=== PATIENT | female | born 1945 | race Hispanic/Latino ===

== ENCOUNTER 2017-03-20 07:30 | Day surgery (SDC) | payer MEDICARE, MEDICAID ==
[2016-12-23 09:57] VITALS: BMI 27.3
[2017-03-20] MEDS ORDERED: Iohexol 240 (50 ml) ONE (07:59)
[2017-03-20] MEDS ORDERED: Lidocaine 1% Inj (20ml) ONE (09:38)
[2017-03-20] MEDS ORDERED: Propofol 10 mg/ml Inj (20 ML) ONE ×2 (09:38→10:14)
--- NOTE | 2017-03-20 15:07 | RAD ---
PROCEDURE: Fluoroscopy up to 1 hour HISTORY: PYLORIC DILATATION COMPARISON: TECHNIQUE: Fluoroscopy was provided in the endoscopy suite. A single image was submitted FINDINGS: Image shows an endoscope overlying the lower abdomen with the tip directed upward IMPRESSION: As above
[2017-03-20 15:18] VITALS: BP 126/75; PULSE 67; RESP 17; TEMP 97.7; O2SAT 98
== END 2017-03-20 13:45 | disposition home or self-care (01) ==
LOC: ENDO 07:30
PROVIDERS: ATTEND Internal Medicine Gastroenterology
DX: K31.1 Adult hypertrophic pyloric stenosis (principal); K22.70 Barrett's esophagus without dysplasia; K25.9 Gastric ulcer, unspecified as acute or chronic, without hemorrhage or perforation
CPT/HCPCS: 43239; 43245; 76000; 88305; 88342; J2704; Q9966

== ENCOUNTER 2017-06-23 09:36 | Day surgery (SDC) | payer MEDICARE, MEDICAID ==
[2016-12-23 09:57] VITALS: BMI 27.3
[2017-06-23] MEDS ORDERED: Iohexol 240 (50 ml) ONE (10:24)
[2017-06-23] MEDS ORDERED: Propofol 10 mg/ml Inj (20 ML) ONE (11:00)
[2017-06-23] MEDS ORDERED: ePHEDrine 50 mg/ml Inj ONE (11:19)
[2017-06-23] MEDS ORDERED: Sodium Chloride 0.9% 1,000 ML IV SCH (12:30)
[2017-06-23 13:13] VITALS: RESP 16; TEMP 97; O2SAT 94
[2017-06-23 14:31] VITALS: BP 110/65; PULSE 90
--- NOTE | 2017-06-23 15:00 | RAD ---
PROCEDURE: Fluoroscopy up to 1 hour HISTORY: PYLORIC DILITATION COMPARISON: TECHNIQUE: Fluoroscopy was provided in the endoscopy suite. Four images were submitted FINDINGS: The study shows the tip of the endoscope and an inflated balloon catheter IMPRESSION: As above
== END 2017-06-23 14:20 | disposition home or self-care (01) ==
LOC: ENDO 09:36
PROVIDERS: ATTEND Internal Medicine Gastroenterology
DX: K31.1 Adult hypertrophic pyloric stenosis (principal); K25.9 Gastric ulcer, unspecified as acute or chronic, without hemorrhage or perforation
CPT/HCPCS: 43245; 76000; C1726; J2704; J7040; Q9966

== ENCOUNTER 2017-11-24 10:57 | Day surgery (SDC) | payer MEDICARE, OTHER ==
[2017-11-23 13:18] VITALS: BMI 26.9
[2017-11-24] MEDS ORDERED: Iohexol 240 (50 ml) ONE (12:16)
[2017-11-24] MEDS ORDERED: Propofol 10 mg/ml Inj (20 ML) ONE (12:29)
[2017-11-24] MEDS ORDERED: Phenylephrine 10 mg/ml Inj ONE (12:37)
[2017-11-24] MEDS ORDERED: Lactated Ringer's 1,000 ML IV SCH (13:15)
[2017-11-24 14:34] VITALS: BP 110/63; PULSE 72; RESP 14; O2SAT 97
[2017-11-24 15:18] VITALS: TEMP 97
--- NOTE | 2017-11-24 16:27 | RAD ---
PROCEDURE: Fluoroscopy up to 1 hour HISTORY: PYLORIC DILITATION UNDER FLUOROSCOPY COMPARISON: TECHNIQUE: Fluoroscopy was provided in the endoscopy suite. 45 seconds of fluoro time were use. 8 images were submitted FINDINGS: The study shows inflation of a balloon catheter in the pylorus. IMPRESSION: As above
== END 2017-11-24 15:30 | disposition home or self-care (01) ==
LOC: ENDO 10:57
PROVIDERS: ATTEND Internal Medicine Gastroenterology
DX: K31.1 Adult hypertrophic pyloric stenosis (principal); K29.50 Unspecified chronic gastritis without bleeding; K31.89 Other diseases of stomach and duodenum
CPT/HCPCS: 43245; 43239; 74360; 88305; 88312; C1725; C1726; J2001; J2370; J2704; J7040; J7120; Q9966

== ENCOUNTER 2018-06-22 10:07 | Day surgery (SDC) | payer MEDICARE, OTHER ==
[2017-11-23 13:18] VITALS: BMI 26.9
[2018-06-22] MEDS ORDERED: Iohexol 240 (50 ml) ONE (11:15)
[2018-06-22] MEDS ORDERED: Propofol 10 mg/ml Inj (20 ML) ONE (11:30)
[2018-06-22] MEDS ORDERED: Lactated Ringer's 1,000 ML IV SCH (12:15)
[2018-06-22 13:15] VITALS: BP 138/61; PULSE 66; RESP 18; TEMP 98.1; O2SAT 96
--- NOTE | 2018-06-22 14:56 | RAD ---
Date of service: 06/22/2018 PROCEDURE: Fluoroscopy up to 1 hour HISTORY: FLUOROSCOPIC GUIDED PYLORIC DILITATION COMPARISON: TECHNIQUE: Fluoroscopy was provided in the endoscopy suite. Fluoro time 27.2 seconds. Cumulative dose 4.01 mGy. Six images were submitted FINDINGS: The study shows placement of a balloon catheter in the pylorus. IMPRESSION: As above
== END 2018-06-22 14:50 | disposition home or self-care (01) ==
LOC: ENDO 10:07
PROVIDERS: ATTEND Internal Medicine Gastroenterology
DX: K31.1 Adult hypertrophic pyloric stenosis (principal); K44.9 Diaphragmatic hernia without obstruction or gangrene; K29.70 Gastritis, unspecified, without bleeding; R13.10 Dysphagia, unspecified; K21.9 Gastro-esophageal reflux disease without esophagitis; M19.90 Unspecified osteoarthritis, unspecified site; Q90.9 Down syndrome, unspecified; Z87.11 Personal history of peptic ulcer disease
CPT/HCPCS: 43245; C1726; J2001; J2704; J7040; J7120; Q9966